=== PATIENT | male | born 1960 | race African-American/Black ===

== ENCOUNTER 2017-06-05 01:01 | Emergency (ER) | payer OTHER ==
[~2017-06-05] VITALS: Ht 193 cm; Wt 91.7 kg
[2017-06-05] MEDS ORDERED: PERCOCET 5/31 TABLET PO (02:31)
[2017-06-05] MEDS ORDERED: KEFLEX500 MG PO (02:31)
[2017-06-05] MEDS ORDERED: MOTRIN800 MG PO (02:31)
[2017-06-05 02:42] VITALS: BP 132/70
== END 2017-06-05 02:44 | disposition home or self-care (01) ==
LOC: EME 01:01
DX: S61.032A Puncture wound without foreign body of left thumb without damage to nail, initial encounter (principal); W29.4XXA Contact with nail gun, initial encounter; W45.0XXA Nail entering through skin, initial encounter; Z23 Encounter for immunization
CPT/HCPCS: 73140; 99281; 99284

== ENCOUNTER 2017-07-16 12:16 | Emergency (ER) | payer OTHER ==
[~2017-07-16] VITALS: Ht 193 cm; Wt 88.3 kg
[~2017-07-16 12:16] MED LIST: KEFLEX500 MG PO; MOTRIN800 MG PO; PERCOCET 5/31 TABLET PO
[2017-07-16 15:42] LABS: ADD MIUA? NO; BILIRUBIN NEGATIVE; BLOOD NEGATIVE; COLOR STRAW ((YELLOW)); GLUCOSE (STRIP) NEGATIVE; KETONES NEGATIVE; LEUKOCYTES NEGATIVE; NITRITE NEGATIVE; PROTEIN (STRIP) NEGATIVE; SPECIFIC GRAVITY 1.006 (1.000-1.030); UROBILINOGEN 0.2 MG/DL (0.2-1.0)
[2017-07-16] MEDS ORDERED: MOTRIN600 MG PO (17:06)
[2017-07-16 17:17] VITALS: BP 100/64
== END 2017-07-16 17:18 | disposition home or self-care (01) ==
LOC: EME 12:16
PROVIDERS: Physician Assistant
DX: S39.011A Strain of muscle, fascia and tendon of abdomen, initial encounter (principal); R30.0 Dysuria; E11.9 Type 2 diabetes mellitus without complications; I10 Essential (primary) hypertension; Z79.84 Long term (current) use of oral hypoglycemic drugs
CPT/HCPCS: 76870; 81003; 99281; 99284

== ENCOUNTER 2017-08-19 07:26 | Emergency (ER) | payer OTHER ==
[~2017-08-19] VITALS: Ht 193 cm; Wt 82.1 kg
[~2017-08-19 07:26] MED LIST changes: +MOTRIN600 MG PO
[2017-08-19 08:50] LABS: APPEARANCE CLEAR ((CLEAR)); BILIRUBIN NEGATIVE; BLOOD NEGATIVE; COLOR YELLOW ((YELLOW)); GLUCOSE (STRIP) NEGATIVE; KETONES NEGATIVE; LEUKOCYTES NEGATIVE; NITRITE NEGATIVE; PROTEIN (STRIP) NEGATIVE; SPECIFIC GRAVITY 1.013 (1.000-1.030); UROBILINOGEN 0.2 MG/DL (0.2-1.0)
[2017-08-19] MEDS ORDERED: MOTRIN600 MG PO (09:52)
[2017-08-19] MEDS ORDERED: NORCO 5/3251 TABLET PO (09:52)
[2017-08-19 10:15] VITALS: BP 120/49
== END 2017-08-19 10:15 | disposition home or self-care (01) ==
LOC: EME 07:26
PROVIDERS: Physician Assistant
DX: S39.011A Strain of muscle, fascia and tendon of abdomen, initial encounter (principal); I10 Essential (primary) hypertension; E11.9 Type 2 diabetes mellitus without complications
CPT/HCPCS: 81003; 99281; 99283

== ENCOUNTER 2017-09-30 02:02 | Emergency (ER) | payer OTHER ==
[~2017-09-30] VITALS: Ht 193 cm; Wt 76.7 kg
[~2017-09-30 02:02] MED LIST changes: +NORCO 5/3251 TABLET PO
[2017-09-30 03:32] LABS: APPEARANCE SL.HAZY ((CLEAR)); BILIRUBIN NEGATIVE; BLOOD NEGATIVE; COLOR YELLOW ((YELLOW)); GLUCOSE (STRIP) NEGATIVE; KETONES NEGATIVE; LEUKOCYTES NEGATIVE; NITRITE NEGATIVE; PROTEIN (STRIP) 100; SPECIFIC GRAVITY 1.025 (1.000-1.030); UROBILINOGEN 0.2 MG/DL (0.2-1.0)
[2017-09-30 03:41] LABS: BASOPHIL (%) 0.5 % (0-1); EOSINOPHIL (%) 0.6 % (0-5); HEMATOCRIT 37.3 % (38.0-50.0); HEMOGLOBIN 12.4 G/DL (12.5-16.6); IMMATURE GRANULOCYTE (%) 0.3 % (0.0-0.7); LYMPHOCYTE (%) 51.8 % (15-42); LYMPHOCYTE COUNT 3.4 K/uL (1.0-2.8); MCH 30.2 PG (29.0-34.0); MCHC 33.2 G/DL (30.0-36.0); MONOCYTE (%) 10.6 % (3-12); MONOCYTE COUNT 0.7 K/uL (0-0.8); NEUTROPHIL (%) 36.2 % (45-76); NEUTROPHIL COUNT 2.4 K/uL (1.8-6.4); PLATELET COUNT 194 K/uL (156-360); RBC DIS.WIDTH-CV 12.5 % (11.8-14.6); RBC DIS.WIDTH-SD 41.3 % (39-53); WHITE BLOOD COUNT 6.6 K/uL (4.1-10.2)
[2017-09-30 03:47] LABS: BACTERIA RARE /HPF; EPITHELIAL CELLS RARE /HPF; HYALINE CASTS TNTC /LPF; MUCUS TRACE /LPF; RED BLOOD CELLS 0-5 /HPF (0-5); UCUL ADDED? NO; WHITE BLOOD CELLS 0-5 /HPF (0-5)
[2017-09-30 03:51] LABS: ALBUMIN 4.2 g/dL (3.2-4.8)
[2017-09-30 03:52] LABS: CHLORIDE 102 mEq/L (99-109); POTASSIUM 3.6 mEq/L (3.7-5.4); SODIUM 138 mEq/L (136-147)
[2017-09-30 03:54] LABS: GLUCOSE 97 mg/dL (70-99); TOTAL PROTEIN 7.4 g/dL (6.4-8.3)
[2017-09-30 03:56] LABS: TOTAL BILIRUBIN 0.5 mg/dL (0.0-1.0)
[2017-09-30 03:57] LABS: ALKALINE PHOSPHATASE 89 IU/L (3-129)
[2017-09-30 03:58] LABS: CREATININE 1.2 mg/dL (0.6-1.3); GFR ESTIMATE (CALCULATED) > 59 mL/min/ (58.99-99999)
[2017-09-30 03:59] LABS: AST (GOT) 37 IU/L (2-34); UREA NITROGEN (BUN) 19 mg/dL (9-23)
[2017-09-30 04:00] LABS: ALT (GPT) 61 IU/L (3-49)
[2017-09-30] MEDS ORDERED: MEDROL DOSEPAK4 MG PO (05:09)
[2017-09-30 05:33] VITALS: BP 128/81
== END 2017-09-30 05:52 | disposition home or self-care (01) ==
LOC: EME 02:02
PROVIDERS: Emergency Medicine
DX: R10.31 Right lower quadrant pain (principal); M54.30 Sciatica, unspecified side; E11.9 Type 2 diabetes mellitus without complications; I10 Essential (primary) hypertension
CPT/HCPCS: 74176; 80053; 81003; 85025; 99281; 99284; J1885

== ENCOUNTER 2017-12-12 18:05 | Emergency (ER) | payer OTHER ==
[~2017-12-12] VITALS: Ht 193 cm; Wt 86.0 kg
[~2017-12-12 18:05] MED LIST changes: +MEDROL DOSEPAK4 MG PO
[2017-12-12] MEDS ORDERED: NAPROSYN500 MG PO (19:19)
[2017-12-12] MEDS ORDERED: FLEXERIL10 MG PO (19:19)
[2017-12-12 19:56] VITALS: BP 110/69
== END 2017-12-12 19:57 | disposition home or self-care (01) ==
LOC: EME 18:05
DX: M94.0 Chondrocostal junction syndrome [Tietze] (principal); S20.219A Contusion of unspecified front wall of thorax, initial encounter; W50.0XXA Accidental hit or strike by another person, initial encounter; E11.9 Type 2 diabetes mellitus without complications; I10 Essential (primary) hypertension
CPT/HCPCS: 71046; 93005; 99281; 99284; J1885